=== PATIENT | male | born 1945 | race Caucasian/White ===

== ENCOUNTER 2024-11-14 14:21 | Emergency (ER) | payer BC, MEDICARE ==
[~2024-11-14] VITALS: Ht 167.6 cm; Wt 72.7 kg
[2024-11-14] MEDS ORDERED: OLME40TA PO (17:57)
[2024-11-14] MEDS ORDERED: MONT10TA97 PO (17:59)
[2024-11-14] MEDS ORDERED: FLUT1INH2 INH (17:59)
[2024-11-14] MEDS ORDERED: DULO1CAP6 PO (18:00)
[2024-11-14] MEDS ORDERED: HYDR25TA87 PO (18:02)
[2024-11-14] MEDS ORDERED: VERA180C PO (18:04)
[2024-11-14] MEDS ORDERED: HYDR12.55 PO (18:05)
[2024-11-14] MEDS ORDERED: ATOR1TAB21 PO (18:06)
[2024-11-14] MEDS ORDERED: PANT40TA29 PO (18:07)
[2024-11-14] MEDS ORDERED: LINZ290C PO (18:08)
[2024-11-14] MEDS ORDERED: VENTAER INH (18:09)
[2024-11-14] MEDS ORDERED: FLUT15.820 NARES (18:10)
[2024-11-14] MEDS ORDERED: FLUT05CR TOP (18:10)
[2024-11-14] MEDS ORDERED: HYDR-4517 PO (18:11)
[2024-11-14] MEDS ORDERED: HYDROmorphone 2 MG TAB PO ONE (19:30)
[2024-11-14] MEDS: NORCO, ANEXSIA 5/325MG TABLET (HYDROcodone/ACETAMINOPHEN) PO ONE (19:44)
[2024-11-14 20:21] VITALS: BP 122/64; TEMP 97.1; O2SAT 99
== END 2024-11-14 20:36 | disposition home or self-care (01) ==
LOC: M ED 14:21
DX: M25.561 Pain in right knee (principal); M25.461 Effusion, right knee; I10 Essential (primary) hypertension; J45.909 Unspecified asthma, uncomplicated; Z85.46 Personal history of malignant neoplasm of prostate; M19.90 Unspecified osteoarthritis, unspecified site; Z95.5 Presence of coronary angioplasty implant and graft